=== PATIENT | female | born 1995 | race Caucasian/White ===

== ENCOUNTER → 2018-06-18 11:42 | Outpatient (CLI) | payer MEDICAID, SELFPAY ==
[2018-06-18 14:51] LABS: Chlamydia Trachomatis by PCR Negative (Negative); Neisserai gonorrhoeae by PCR Negative (Negative); Probe Check PASS; Sample Adequacy Control PASS; Specimen Processing Control PASS
[2018-06-19 16:42] LABS: HPV Reflexed? NOT INDICATED
== END ==
PROVIDERS: Visit Provider Obstetrics & Gynecology
DX: Z12.4 Encounter for screening for malignant neoplasm of cervix (principal); Z11.3 Encounter for screening for infections with a predominantly sexual mode of transmission
CPT/HCPCS: 87491; 87591; 88175; G0145

== ENCOUNTER → 2019-06-24 16:45 | Outpatient (CLI) | payer MEDICAID, SELFPAY ==
[2019-06-24 21:36] LABS: Chlamydia Trachomatis by PCR Negative (Negative); Neisserai gonorrhoeae by PCR Negative (Negative); Probe Check PASS; Sample Adequacy Control PASS; Specimen Processing Control PASS
== END ==
PROVIDERS: Visit Provider Obstetrics & Gynecology
DX: Z11.3 Encounter for screening for infections with a predominantly sexual mode of transmission (principal)
CPT/HCPCS: 87491; 87591

== ENCOUNTER → 2021-07-01 | Outpatient (CLI) | payer MEDICAID, SELFPAY ==
[2021-07-02 10:18] LABS: HIV - WCH Non-Reactive (Nonreactive); Hepatitis B Surface Antibody Reactive; Hepatitis B Surface Antigen Non-Reactive (Nonreactive); Hepatitis C Antibody Non-Reactive (Nonreactive); Syphilis Antibodies Non-reactive
[2021-07-05 22:06] LABS: Chlamydia By Nucleic Acid AMP Negative (Negative)
[2021-07-05 23:21] LABS: Gonococcus By Nucleic Acid AMP Negative (Negative)
[2021-07-07 16:42] LABS: HPV Reflexed? NOT INDICATED
== END | disposition home or self-care (01) ==
LOC: LABSPEC 14:32
PROVIDERS: Visit Provider Student in an Organized Health Care Education/Training Program
DX: Z12.4 Encounter for screening for malignant neoplasm of cervix (principal); Z11.3 Encounter for screening for infections with a predominantly sexual mode of transmission
CPT/HCPCS: 36415; 86703; 86706; 86780; 86803; 87340; 87491; 87591; 88175; G0145

== ENCOUNTER 2021-10-14 14:17 | Outpatient (CLI) | payer MEDICAID, SELFPAY ==
--- NOTE | 2021-10-14 11:00 | VUL_PTH ---
PATIENT: BECCA WOOD LOC: [facility] U#:[id number] AGE/SX: 26/F ROOM: RE10/14/[address]: Dr. Kateryna Thomson, : 1995 BED: DIS: 10/14/2021 SPEC #: [id number] RECD: 10/14/21 14:27 STATUS: BALWINDER MARISABEL #: [id number] ELOISE: 10/14/21 11:[address]: Kateryna Thomson DEPT: SURGICAL PATHOLOGY RECD BY: Wen Hurt Tissues: Vulva, NOS Procedures: Surgery Specimen Level IV HEADER OPERATION: Vulvar biopsy PRE-OP DIAGNOSIS: Vulvar lesion TISSUE SUBMITTED: Vulvar lesion MICROSCOPIC DIAGNOSIS Vulvar lesion, biopsy: Epidermal hyperplasia, chronic inflammation and hyperkeratosis. Negative for dysplasia/malignancy. See comment. JAY:jose 10/18/2021 COMMENT Clinical correlation and appropriate follow up are necessary. MICROSCOPIC DESCRIPTION Slides are reviewed. GROSS DESCRIPTION Received in fixative is one container labeled with the patient's name and designated vulvar biopsy. The specimen consists of a piece of brown-brown skin measuring 0.2 x 0.1 x 0.1 cm. The specimen is totally submitted in one cassette. / SJ:rg 10/15/2021 TC:5 CPT: 15789
== END 2021-10-14 23:59 | disposition home or self-care (01) ==
LOC: LABSPEC 14:18
PROVIDERS: Visit Provider Student in an Organized Health Care Education/Training Program
DX: N90.69 Other specified hypertrophy of vulva (principal); N90.4 Leukoplakia of vulva
CPT/HCPCS: 88305

== ENCOUNTER → 2022-07-22 | Outpatient (CLI) | payer MEDICAID, SELFPAY ==
[2022-07-29 18:20] LABS: HPV Reflexed? NOT INDICATED
== END | disposition home or self-care (01) ==
LOC: LABSPEC 12:15
PROVIDERS: Visit Provider Student in an Organized Health Care Education/Training Program
DX: Z12.4 Encounter for screening for malignant neoplasm of cervix (principal)
CPT/HCPCS: 88175; G0145